=== PATIENT | male | born 1940 | race Asian ===

== ENCOUNTER 2018-07-21 19:00 | Inpatient (IN) | payer OTHER, MEDICAID ==
[~2018-07-21] VITALS: Ht 157.5 cm; Wt 71.7 kg
[2018-07-21 19:00] VITALS: BP_SYST 110
[2018-07-21 19:38] LABS: BASOPHILS # (AUTO) 0.2 K/uL (0.0-0.2); EOSINOPHILS # (AUTO) 0.1 K/uL (0.0-0.4); EOSINOPHILS % (AUTO) 2.6 % (0.0-4.0); HEMATOCRIT 33.8 % (36-54); HEMOGLOBIN 11.5 g/dL (14.0-18.0); LYMPHOCYTES # (AUTO) 0.4 K/uL (1.0-5.5); LYMPHOCYTES % (AUTO) 6.7 % (20.5-51.5); MEAN CORPUSCULAR HEMOGLOBIN 31 pg (27-31); MEAN CORPUSCULAR HGB CONC 34 % (32-36); MEAN CORPUSCULAR VOLUME 91 fL (79.0-98.0); MONOCYTES # (AUTO) 0.7 K/uL (0.0-1.0); MONOCYTES % (AUTO) 12.8 % (1.7-9.3); NEUTROPHILS # (AUTO) 4.3 K/uL (1.8-7.7); NEUTROPHILS % (AUTO) 73.9 % (40.0-70.0); PLATELET COUNT (AUTO) 316 K/uL (130-430); RED BLOOD CELL COUNT(AUTO) 3.71 MIL/uL (4.2-6.2); RED CELL DISTRIBUTION WIDTH 12.3 % (9.0-15.0); WHITE BLOOD COUNT (AUTO) 5.7 K/uL (4.8-10.8)
[2018-07-21 19:51] LABS: ANION GAP 5 (5-15); CALCIUM 10.8 mg/dL (8.4-11.0); CHLORIDE 96 mmol/L (98-107); CREATININE 2.19 mg/dL (0.55-1.30); GLUCOSE 273 mg/dL (70-99); SODIUM SERUM 126 mmol/L (136-145); UREA NITROGEN, BLOOD 61 mg/dL (8-21)
[2018-07-21 19:56] LABS: ALANINE AMINOTRANSFERASE 19 U/L (12-78); ASPARTATE AMINOTRANSFERASE 21 U/L (10-37); TOTAL BILIRUBIN 0.4 mg/dL (0.0-1.0)
[2018-07-21 20:27] LABS: PROTHROMBIN TIME 9.9 SECS (9.5-12.5)
[2018-07-21] MEDS ORDERED: ASPIRIN 81 MG TAB.CHEW PO ONE (20:30)
[2018-07-21] MEDS ORDERED: NACL 0.9% 1,000 ML IV ONE (20:30)
[2018-07-21 20:59] LABS: BILIRUBIN,URINE NEGATIVE (NEGATIVE); BLOOD, URINE NEGATIVE (NEGATIVE); CLARITY/URINE CLEAR (CLEAR); COLOR,URINE YELLOW (YELLOW); GLUCOSE,URINE NEGATIVE (NEGATIVE); KETONES,URINE NEGATIVE (NEGATIVE); LEUKOCYTE ESTERASE ,URINE 1+ (NEGATIVE); NITRITE, URINE NEGATIVE (NEGATIVE); PH,URINE 5.5 (5.0-8.0); PROTEIN URINE NEGATIVE (NEGATIVE); UROBILINOGEN,URINE 0.2 (0.2-1.0)
[2018-07-21] MEDS ORDERED: VALS320T2 PO (21:00)
[2018-07-21] MEDS ORDERED: MORPHINE 2 MG/ML INJ. SYRINGE IVP PRN (21:00)
[2018-07-21] MEDS ORDERED: AMLO5TAB4 PO (21:00)
[2018-07-21] MEDS ORDERED: FENO134C PO (21:00)
[2018-07-21] MEDS ORDERED: DUTA0.5C PO (21:00)
[2018-07-21] MEDS ORDERED: ONDANSETRON HCL 4 MG/2 ML VIAL IVP PRN (21:00)
[2018-07-21] MEDS ORDERED: TAMS-11 PO (21:00)
[2018-07-21] MEDS ORDERED: LINA5TAB2 PO (21:00)
[2018-07-21] MEDS ORDERED: POTASSIUM CHLORIDE 20 MEQ/PKT PACKET PO PRN (21:00)
[2018-07-21] MEDS ORDERED: HYDROcodone/ACETAMIN 5-325 MG TAB (NORCO/ VICODIN) PO PRN (21:00)
[2018-07-21 21:04] LABS: BACTERIA,URINE RARE /HPF (None Seen); HYALINE CASTS, URINE 0-10 /LPF (None Seen); MUCUS,URINE None Seen /LPF (None Seen); RBC,URINE NONE SEEN /HPF (0-3)
[2018-07-21 21:38] VITALS: BP_SYST 146
[2018-07-21] MEDS: HEPARIN SODIUM,PORCINE 5000 UNITS/ML VIAL SUBCUT SCH (22:05)
[2018-07-21] MEDS: NACL 0.9% 1,000 ML IV SCH (22:06)
[2018-07-22 00:27] VITALS: BP_SYST 127
[2018-07-22 06:14] LABS: BASOPHILS % (AUTO) 0.4 % (0.0-2.0); EOSINOPHILS # (AUTO) 0.2 K/uL (0.0-0.4); EOSINOPHILS % (AUTO) 3.5 % (0.0-4.0); HEMATOCRIT 32.1 % (36-54); HEMOGLOBIN 10.6 g/dL (14.0-18.0); LYMPHOCYTES # (AUTO) 0.4 K/uL (1.0-5.5); LYMPHOCYTES % (AUTO) 8.3 % (20.5-51.5); MEAN CORPUSCULAR HEMOGLOBIN 30 pg (27-31); MEAN CORPUSCULAR HGB CONC 33 % (32-36); MEAN CORPUSCULAR VOLUME 92 fL (79.0-98.0); MONOCYTES # (AUTO) 0.9 K/uL (0.0-1.0); MONOCYTES % (AUTO) 17.8 % (1.7-9.3); NEUTROPHILS # (AUTO) 3.4 K/uL (1.8-7.7); PLATELET COUNT (AUTO) 343 K/uL (130-430); RED BLOOD CELL COUNT(AUTO) 3.49 MIL/uL (4.2-6.2); RED CELL DISTRIBUTION WIDTH 12.5 % (9.0-15.0); WHITE BLOOD COUNT (AUTO) 4.9 K/uL (4.8-10.8)
[2018-07-22 06:54] LABS: ANION GAP 7 (5-15); CALCIUM 9.4 mg/dL (8.4-11.0); CHLORIDE 102 mmol/L (98-107); CREATININE 1.57 mg/dL (0.55-1.30); GLUCOSE 137 mg/dL (70-99); PHOSPHORUS 3.2 mg/dL (2.7-4.5); SODIUM SERUM 135 mmol/L (136-145); UREA NITROGEN, BLOOD 45 mg/dL (8-21)
[2018-07-22 08:00] VITALS: BP_SYST 117
[2018-07-22] MEDS: ASPIRIN 81 MG TAB.CHEW PO SCH (09:11)
[2018-07-22] MEDS: TAMSULOSIN HCL 0.4 MG CAP PO SCH (09:11)
[2018-07-22] MEDS: amLODIPine BESYLATE 5 MG TABLET PO SCH (09:12)
[2018-07-22] MEDS: VALSARTAN 160 MG TABLET (DIOVAN) PO SCH (09:12)
[2018-07-22] MEDS: HEPARIN SODIUM,PORCINE 5000 UNITS/ML VIAL SUBCUT SCH ×2 (09:13→20:50)
[2018-07-22 12:00] VITALS: BP_SYST 130
[2018-07-22] MEDS ORDERED: GLUCOSE 15 GM GEL (in 37.5 GM TUBE) PO PRN (13:00)
[2018-07-22] MEDS ORDERED: INSULIN ASPART 100 UNITS/ML, 10 ML VIAL (NovoLOG) SUBCUT PRN (13:00)
[2018-07-22] MEDS ORDERED: LACTOBACILLUS RHAMNOSUS GG 1 CAP CAPSULE PO ONE (13:15)
[2018-07-22] MEDS ORDERED: cefTRIAXone 1 GM in D5W 50 ML IV SCH (14:00)
[2018-07-22] MEDS: DUTASTERIDE 0.5 MG CAPSULE (AVODART) PO SCH (14:22)
[2018-07-22 16:03] VITALS: BP_SYST 112; BP_SYST 96
[2018-07-22] MEDS: NACL 0.9% 1,000 ML IV SCH ×2 (17:07→17:30)
[2018-07-22 20:00] VITALS: BP_SYST 102
[2018-07-23 00:40] VITALS: BP_SYST 117
[2018-07-23] MEDS: NACL 0.9% 1,000 ML IV SCH (02:23)
[2018-07-23 08:25] VITALS: BP_SYST 133
[2018-07-23] MEDS: VALSARTAN 160 MG TABLET (DIOVAN) PO SCH (08:25)
[2018-07-23] MEDS: amLODIPine BESYLATE 5 MG TABLET PO SCH (08:26)
[2018-07-23] MEDS: TAMSULOSIN HCL 0.4 MG CAP PO SCH (08:30)
[2018-07-23] MEDS: ASPIRIN 81 MG TAB.CHEW PO SCH (08:30)
[2018-07-23] MEDS: HEPARIN SODIUM,PORCINE 5000 UNITS/ML VIAL SUBCUT SCH (08:32)
[2018-07-23] MEDS: DUTASTERIDE 0.5 MG CAPSULE (AVODART) PO SCH (08:40)
[2018-07-23] MEDS ORDERED: LACTOBACILLUS RHAMNOSUS GG 1 CAP CAPSULE PO SCH (09:00)
[2018-07-23 11:40] VITALS: BP_SYST 103
[2018-07-23 12:39] VITALS: BP_SYST 131
== END 2018-07-23 12:13 | disposition home or self-care (01) | DRG 73 ==
LOC: SED 19:00 → SMU 20:58 → STU 21:25
PROVIDERS: ADMIT Family Medicine; ATTEND Family Medicine
DX: G90.8 Other disorders of autonomic nervous system (principal); G93.41 Metabolic encephalopathy; N17.0 Acute kidney failure with tubular necrosis; N39.0 Urinary tract infection, site not specified; E87.1 Hypo-osmolality and hyponatremia; E44.0 Moderate protein-calorie malnutrition; I10 Essential (primary) hypertension; E11.9 Type 2 diabetes mellitus without complications; N40.0 Benign prostatic hyperplasia without lower urinary tract symptoms; Z79.899 Other long term (current) drug therapy; Z85.46 Personal history of malignant neoplasm of prostate; Z68.28 Body mass index [BMI] 28.0-28.9, adult; I69.392 Facial weakness following cerebral infarction; Z92.21 Personal history of antineoplastic chemotherapy; D64.9 Anemia, unspecified
CPT/HCPCS: 36415; 70450-TC; 71045; 80048; 80053; 81000-TC; 83036; 83735-TC; 84100-TC; 84484; 85025; 85610-TC; 85730-TC; 87086; 90656; 93005; 93306; 96360; 99291; J0696; J1644; J7030; J7060

== ENCOUNTER 2024-07-16 12:20 | Inpatient (IN) | payer OTHER ==
[~2024-07-16] VITALS: Ht 162.6 cm; Wt 69.9 kg
[~2024-07-16 12:20] MED LIST: AMLO5TAB4 PO; DUTA0.5C PO; FENO134C19 PO; LINA5TAB2 PO; TAMS-11 PO; VALS320T2 PO
[2024-07-16 12:36] VITALS: BP_SYST 123; PULSE 84; RESP 15; TEMP 98; O2SAT 100
[2024-07-16 13:12] LABS: MEAN CORPUSCULAR HEMOGLOBIN 27 pg (27-31); MEAN CORPUSCULAR HGB CONC 31 % (32-36); MEAN CORPUSCULAR VOLUME 85 fL (79.0-98.0); PLATELET COUNT (AUTO) 590 K/uL (130-430); RED BLOOD CELL COUNT(AUTO) 2.44 MIL/uL (4.2-6.2); RED CELL DISTRIBUTION WIDTH 16.6 % (9.0-15.0)
[2024-07-16 13:25] LABS: HEMOGLOBIN 6.5 g/dL (14.0-18.0)
[2024-07-16 13:26] LABS: HEMATOCRIT 20.7 % (36-54)
[2024-07-16 13:27] LABS: PROTHROMBIN TIME 10.4 SECS (9.5-12.5)
[2024-07-16 13:41] LABS: ALANINE AMINOTRANSFERASE 15 U/L (12-78); ALBUMIN 3.1 g/dL (3.4-4.8); ANION GAP 8 (5-15); ASPARTATE AMINOTRANSFERASE 42 U/L (10-37); CALCIUM 9.2 mg/dL (8.4-11.0); CARBON DIOXIDE 26 mmol/L (23-29); CHLORIDE 110 mmol/L (98-107); CREATININE 1.63 mg/dL (0.55-1.30); GLUCOSE 227 mg/dL (74-106); POTASSIUM 4.5 mmol/L (3.5-5.1); SODIUM SERUM 144 mmol/L (136-145); TOTAL BILIRUBIN 0.3 mg/dL (0.0-1.0); TOTAL PROTEIN, SERUM 6.9 g/dL (6.4-8.3); UREA NITROGEN, BLOOD 47 mg/dL (8-21)
[2024-07-16 13:48] LABS: BILIRUBIN,DIRECT 0.1 mg/dL (0.0-0.3); CREATINE KINASE, TOTAL 285 U/L (39-308)
[2024-07-16 14:20] LABS: BASOPHILS % (MANUAL) 0 % (0-2); EOSINOPHILS % (MANUAL) 1 % (0-7); HYPOCHROMASIA 1+; LYMPHOCYTES % (MANUAL) 9 % (20-46); MONOCYTES % (MANUAL) 8 % (0-11); PLATELET ESTIMATE INCREASED (ADEQUATE); POLYCHROMASIA SLIGHT
[2024-07-16 14:21] LABS: ANISOCYTOSIS 1+; TARGET CELLS FEW
[2024-07-16] MEDS ORDERED: ONDANSETRON HCL 4 MG/2 ML VIAL IVP PRN (16:00)
[2024-07-16] MEDS ORDERED: LORazepam 2 MG/ML VIAL IVP PRN (16:00)
[2024-07-16] MEDS ORDERED: ACETAMINOPHEN 325 MG TABLET PO PRN ×2 (16:00→17:15)
[2024-07-16] MEDS: D5NS 1,000 ML IV SCH (16:00)
[2024-07-16] MEDS ORDERED: MORPHINE 4 MG INJ. 4 MG/ML VIAL IVP PRN (16:00)
[2024-07-16] MEDS ORDERED: MORPHINE 2 MG/ML INJ. SYRINGE IVP PRN (16:00)
[2024-07-16] MEDS: ASPIRIN 81 MG TAB.CHEW PO ONE (16:27)
[2024-07-16] MEDS: ASPIRIN 325 MG TABLET PO ONE (16:30)
[2024-07-16] MEDS ORDERED: INSULIN REGULAR, HUMAN 100 UNITS/ML, 3 ML VIAL (humuLIN R) SUBCUT PRN (17:00)
[2024-07-16] MEDS ORDERED: D5W 1,000 ML IV PRN (17:15)
[2024-07-16] MEDS ORDERED: GLUCOSE (DEXTROSE) ORAL GEL -Adults PO PRN (17:15)
[2024-07-16] MEDS ORDERED: DEXTROSE 50%-WATER 50 ML DISP.SYRIN IVP PRN (17:15)
[2024-07-16 18:34] LABS: BILIRUBIN,URINE NEGATIVE (NEGATIVE); BLOOD, URINE NEGATIVE (NEGATIVE); CLARITY/URINE CLEAR (CLEAR); COLOR,URINE YELLOW (YELLOW); GLUCOSE,URINE 1+ (NEGATIVE); KETONES,URINE NEGATIVE (NEGATIVE); LEUKOCYTE ESTERASE ,URINE NEGATIVE (NEGATIVE); NITRITE, URINE NEGATIVE (NEGATIVE); PROTEIN URINE NEGATIVE (NEGATIVE); UROBILINOGEN,URINE 0.2 (0.2-1.0)
[2024-07-16] MEDS ORDERED: AMLO5TAB92 PO (18:37)
[2024-07-16] MEDS ORDERED: TELM20TA8 PO (18:37)
[2024-07-16] MEDS ORDERED: ATOR20TA64 PO (18:37)
[2024-07-16] MEDS ORDERED: ENZA40TA PO (18:37)
[2024-07-16] MEDS ORDERED: SITA50TA3 PO (18:37)
[2024-07-16] MEDS ORDERED: DAPA5TAB PO (18:37)
[2024-07-16 20:55] VITALS: BP_SYST 111; PULSE 74; RESP 18; TEMP 97.6; O2SAT 99
[2024-07-17 00:10] VITALS: BP_SYST 120; PULSE 72; RESP 18; TEMP 96.6; O2SAT 99
[2024-07-17] MEDS: INSULIN REGULAR, HUMAN 100 UNITS/ML, 3 ML VIAL (humuLIN R) SUBCUT PRN (06:16)
[2024-07-17 08:00] VITALS: BP_SYST 109; PULSE 71; RESP 15; RESP 16; TEMP 97.5; O2SAT 100
[2024-07-17 08:30] VITALS: O2SAT 100
[2024-07-17 08:35] LABS: BASOPHILS # (AUTO) 0.1 K/uL (0.0-0.2); EOSINOPHILS # (AUTO) 0.4 K/uL (0.0-0.4); HEMATOCRIT 23.8 % (36-54); HEMOGLOBIN 7.8 g/dL (14.0-18.0); LYMPHOCYTES # (AUTO) 1.1 K/uL (1.0-5.5); LYMPHOCYTES % (AUTO) 12.9 % (20.5-51.5); MEAN CORPUSCULAR HEMOGLOBIN 27 pg (27-31); MEAN CORPUSCULAR HGB CONC 33 % (32-36); MEAN CORPUSCULAR VOLUME 82 fL (79.0-98.0); MONOCYTES # (AUTO) 0.9 K/uL (0.0-1.0); MONOCYTES % (AUTO) 10.1 % (1.7-9.3); NEUTROPHILS # (AUTO) 6.2 K/uL (1.8-7.7); PLATELET COUNT (AUTO) 481 K/uL (130-430); RED BLOOD CELL COUNT(AUTO) 2.91 MIL/uL (4.2-6.2); RED CELL DISTRIBUTION WIDTH 16.9 % (9.0-15.0); WHITE BLOOD COUNT (AUTO) 8.7 K/uL (4.8-10.8)
[2024-07-17] MEDS: ATORVASTATIN 20 MG TABLET PO SCH (08:56)
[2024-07-17] MEDS: ASPIRIN 81 MG TAB.CHEW PO SCH (08:56)
[2024-07-17] MEDS: NACL 0.9% 1,000 ML IV SCH (09:30)
[2024-07-17 10:32] LABS: ALANINE AMINOTRANSFERASE 15 U/L (12-78); ALBUMIN 2.7 g/dL (3.4-4.8); ANION GAP 4 (5-15); ASPARTATE AMINOTRANSFERASE 45 U/L (10-37); CALCIUM 8.2 mg/dL (8.4-11.0); CARBON DIOXIDE 29 mmol/L (23-29); CHLORIDE 113 mmol/L (98-107); CREATININE 1.37 mg/dL (0.55-1.30); GLUCOSE 192 mg/dL (74-106); SODIUM SERUM 146 mmol/L (136-145); TOTAL BILIRUBIN 0.8 mg/dL (0.0-1.0); TOTAL PROTEIN, SERUM 6.2 g/dL (6.4-8.3); UREA NITROGEN, BLOOD 29 mg/dL (8-21)
[2024-07-17 12:44] VITALS: BP_SYST 90; PULSE 86; RESP 16; TEMP 98.9; O2SAT 98
[2024-07-17 17:13] VITALS: BP_SYST 133; PULSE 81; RESP 18; TEMP 97.6; O2SAT 98
[2024-07-17 20:00] VITALS: BP_SYST 115; PULSE 80; RESP 18; TEMP 97.8; O2SAT 100
[2024-07-18 01:29] VITALS: BP_SYST 122; PULSE 73; RESP 18; TEMP 98.6; O2SAT 98
[2024-07-18 07:57] VITALS: BP_SYST 142; PULSE 86; RESP 16; TEMP 97.7; O2SAT 98
[2024-07-18 08:10] VITALS: O2SAT 98
[2024-07-18 10:50] LABS: BASOPHILS # (AUTO) 0.1 K/uL (0.0-0.2); EOSINOPHILS # (AUTO) 0.4 K/uL (0.0-0.4); EOSINOPHILS % (AUTO) 4.7 % (0.0-4.0); HEMATOCRIT 25.5 % (36-54); HEMOGLOBIN 8.2 g/dL (14.0-18.0); LYMPHOCYTES # (AUTO) 1.1 K/uL (1.0-5.5); LYMPHOCYTES % (AUTO) 13.8 % (20.5-51.5); MEAN CORPUSCULAR HEMOGLOBIN 27 pg (27-31); MEAN CORPUSCULAR HGB CONC 32 % (32-36); MEAN CORPUSCULAR VOLUME 83 fL (79.0-98.0); MONOCYTES # (AUTO) 0.7 K/uL (0.0-1.0); MONOCYTES % (AUTO) 8.7 % (1.7-9.3); NEUTROPHILS % (AUTO) 71.8 % (40.0-70.0); PLATELET COUNT (AUTO) 502 K/uL (130-430); RED BLOOD CELL COUNT(AUTO) 3.07 MIL/uL (4.2-6.2); RED CELL DISTRIBUTION WIDTH 17.3 % (9.0-15.0); WHITE BLOOD COUNT (AUTO) 8.3 K/uL (4.8-10.8)
[2024-07-18 10:55] LABS: ANION GAP 10 (5-15); CARBON DIOXIDE 25 mmol/L (23-29); CHLORIDE 108 mmol/L (98-107); GLUCOSE 231 mg/dL (74-106); POTASSIUM 3.6 mmol/L (3.5-5.1); SODIUM SERUM 143 mmol/L (136-145); UREA NITROGEN, BLOOD 19 mg/dL (8-21)
[2024-07-18 12:05] VITALS: BP_SYST 122; PULSE 93; RESP 18; TEMP 97.3; O2SAT 98
[2024-07-18 16:05] VITALS: BP_SYST 140; PULSE 69; RESP 18; TEMP 97.8; O2SAT 98
[2024-07-18] MEDS ORDERED: POLYETHYLENE GLYCOL 3350, 17 GM/ POWD.PACK PO PRN (16:15)
[2024-07-18 20:00] VITALS: BP_SYST 133; PULSE 82; RESP 18; TEMP 97.4; O2SAT 97
[2024-07-19] VITALS (7 sets, daily range): BP systolic 129–143; PULSE 72–87; RESP 16–20; TEMP 96.7–98.4; O2SAT 97–99
[2024-07-19 08:51] LABS: BASOPHILS # (AUTO) 0.1 K/uL (0.0-0.2); BASOPHILS % (AUTO) 1.4 % (0.0-2.0); EOSINOPHILS # (AUTO) 0.6 K/uL (0.0-0.4); EOSINOPHILS % (AUTO) 6.6 % (0.0-4.0); HEMATOCRIT 27.2 % (36-54); HEMOGLOBIN 8.7 g/dL (14.0-18.0); LYMPHOCYTES # (AUTO) 1.1 K/uL (1.0-5.5); LYMPHOCYTES % (AUTO) 11.3 % (20.5-51.5); MEAN CORPUSCULAR HEMOGLOBIN 27 pg (27-31); MEAN CORPUSCULAR HGB CONC 32 % (32-36); MEAN CORPUSCULAR VOLUME 83 fL (79.0-98.0); MONOCYTES # (AUTO) 0.8 K/uL (0.0-1.0); MONOCYTES % (AUTO) 8.5 % (1.7-9.3); NEUTROPHILS # (AUTO) 7.1 K/uL (1.8-7.7); NEUTROPHILS % (AUTO) 72.2 % (40.0-70.0); PLATELET COUNT (AUTO) 561 K/uL (130-430); RED BLOOD CELL COUNT(AUTO) 3.28 MIL/uL (4.2-6.2); RED CELL DISTRIBUTION WIDTH 17.4 % (9.0-15.0); WHITE BLOOD COUNT (AUTO) 9.8 K/uL (4.8-10.8)
[2024-07-19 09:32] LABS: ALANINE AMINOTRANSFERASE 19 U/L (12-78); ALBUMIN 2.8 g/dL (3.4-4.8); ANION GAP 10 (5-15); ASPARTATE AMINOTRANSFERASE 32 U/L (10-37); CALCIUM 7.7 mg/dL (8.4-11.0); CARBON DIOXIDE 25 mmol/L (23-29); CHLORIDE 108 mmol/L (98-107); CREATININE 1.11 mg/dL (0.55-1.30); GLUCOSE 175 mg/dL (74-106); POTASSIUM 3.6 mmol/L (3.5-5.1); SODIUM SERUM 143 mmol/L (136-145); TOTAL BILIRUBIN 0.7 mg/dL (0.0-1.0); TOTAL PROTEIN, SERUM 6.7 g/dL (6.4-8.3); UREA NITROGEN, BLOOD 14 mg/dL (8-21)
[2024-07-19] MEDS ORDERED: LIP20 PO (11:21)
[2024-07-19] MEDS ORDERED: ASPI-1155 PO (11:24)
[2024-07-19] MEDS ORDERED: FERR236T3 PO (11:24)
== END 2024-07-19 17:00 | DRG 280 ==
LOC: SED 12:20 → STU 15:51
PROVIDERS: ADMIT Family Medicine; ATTEND Family Medicine
PROC: 30233N1 Transfusion of Nonautologous Red Blood Cells into Peripheral Vein, Percutaneous Approach (ICD-10-PCS; principal; 2024-07-16)
DX: I21.4 Non-ST elevation (NSTEMI) myocardial infarction (principal); N17.0 Acute kidney failure with tubular necrosis; D64.9 Anemia, unspecified; E11.9 Type 2 diabetes mellitus without complications; E86.0 Dehydration; I10 Essential (primary) hypertension; E78.5 Hyperlipidemia, unspecified; N40.0 Benign prostatic hyperplasia without lower urinary tract symptoms; Z79.899 Other long term (current) drug therapy; Z86.73 Personal history of transient ischemic attack (TIA), and cerebral infarction without residual deficits; Z85.46 Personal history of malignant neoplasm of prostate; Z79.82 Long term (current) use of aspirin
CPT/HCPCS: 36415; 70450-TC; 71045; 80048; 80053; 80076; 81001; 81003; 82550; 83605; 83690; 83735; 83880; 84100; 84484; 85007; 85025; 85027; 85610; 85730; 86886; 86900; 86901; 86920; 93005; 93306; 97110-GP; 97116-GP; 97530-GP; 99291; G0378; J7030; J7042; J7060; P9021